=== PATIENT | male | born 1950 | race African-American/Black ===

== ENCOUNTER 2019-06-29 06:18 | Emergency (ER) | payer OTHER, SELFPAY ==
[2019-06-29 06:23] VITALS: BP 112/56; PULSE 53; RESP 17; TEMP 36.6; O2SAT 97
--- NOTE | 2019-06-29 06:29 | PC.NURSE ---
PT INTUBATED WITH AN 8.0 ET TUBE.
--- NOTE | 2019-06-29 06:41 | PC.NURSE ---
PT TO ASYSTOLE AT THIS TIME CPR STARTED.
[2019-06-29 06:54] LABS: Glucose Point of Care 171 (65-105)
--- NOTE | 2019-06-29 06:56 | PC.NURSE ---
in at this time with edp present. states that she would like to stop cpr at this time. time of 2007
--- NOTE | 2019-06-29 06:59 | ED.CPR ---
HPI - CPR General Chief Complaint: Cardiac Arrest/CPR Stated Complaint: unresponsive, stemi Time Seen by Provider: 06/29/19 06:37 History of Present Illness HPI narrative: BIBEMS from home in cardiac arrest. He reportedly got up from bed to go to the bathroom and his heard him fall. She went to check on him and he was complaining of back pain and only intermittently lucid. When EMS arrived he was unresponsive, but noted to have ST elevation in multiple leads. They called him in as a STEMI. In route to the hospital he went into cardiac arrest. CPR was started. On arrival here he had regained pulse, but remained unresponsive. He was intubated. Shortly afterward he went back into cardiac arrest. He was noted to be in asystole throughout. he received multiple doses of epi. Review of Systems Review of Systems: ROS unobtainable: Yes unobtainable due to medical condition PMFSH Social History Social History Gender identity (if verbalized by the patient): Male Exam Const: Other: Unresponsive. Eyes: Other: Pupils 5 mm and sluggish Resp: Other: agonal respirations Cardio: Other: Irregular bradycardic thready pulse GI: Other: soft nondistended Skin: General skin exam: normal color Neuro: Other: unresponsive Extrem: General: no edema Course Vital Signs Vital signs: Vital Signs Temperature 36.6 C 06/29/19 06:23 Pulse Rate 53 L 06/29/19 06:23 Respiratory Rate 17 06/29/19 06:23 Blood Pressure 112/56 L 06/29/19 06:23 Pulse Oximetry 97 06/29/19 06:23 Temperature 36.6 C 06/29/19 06:23 Pulse Rate 53 L 06/29/19 06:23 Respiratory Rate 17 06/29/19 06:23 Blood Pressure 112/56 L 06/29/19 06:23 Pulse Oximetry 97 06/29/19 06:23 Procedures Intubation Intubation #1: Intubation Date: 06/29/19 Time out performed: No sedative: none Laryngoscope: fiber optic video scope Tube Size (cm): 8.0 Method of Intubation: orotracheal Number of Attempts: 2 Tube Placement Confirmation: visualized tube passing through cords, equal breath sounds bilaterally, no breath sounds over epigastrium and confirmation by capnometry Intubation Complications: difficult intubation Additional Comments: converted to video scope after failure to visualize cords under direct MDM - Cardiac Arrest/CPR Lab Data Labs: Lab Results 06/29/19 Range/Units 06:52 POC Capillary Glucose 171 H (65-105) mg/dl
--- NOTE | 2019-06-29 07:09 | ECG_ITS ---
Measurements Intervals [place] Rate: 61 P: [place]: 0 QRS: -78 QRSD: 194 T: 0 QT: 404 QTc: 409 Interpretive Statements JUNCTIONAL RHYTHM LEFT AXIS DEVIATION RIGHT BUNDLE BRANCH BLOCK CANNOT RULE OUT SEPTAL INFARCT, AGE INDETERMINATE ST ELEVATION IN ANT/INF LEADS- CONSIDER ACUTE INJURY BASELINE WANDER- I, II, V4-V6 ABNORMAL ECG Electronically Signed On 06-29-2019 8:41:38 CDT by Alexi Joe D.O.
--- NOTE | 2019-06-29 07:30 | PC.NURSE ---
Spoke with Peter Forde at [facility]. States [facility] will be coming to ER.
--- NOTE | 2019-06-29 07:40 | PC.NURSE ---
Spoke with Joel at [facility]. States pt is a candidate for donation. They will contact family.
== END 2019-06-29 09:15 | disposition expired ==
PROVIDERS: Emergency Provider Emergency Medicine
DX: I46.9 Cardiac arrest, cause unspecified (principal); I45.10 Unspecified right bundle-branch block; R94.31 Abnormal electrocardiogram [ECG] [EKG]
CPT/HCPCS: 31500; 92950; 93005; 99285; J0171; J1644